=== PATIENT | male | born 1950 | race Caucasian/White ===

== ENCOUNTER 2016-11-09 18:16 | Emergency (ER) | payer BC ==
--- NOTE | ~2016-11-09 | ER ---
PATIENT'S NAME: DARI FOX [facility] AGE: 66 Y [address] ROOM: [place] [address] LOCATION: [facility] ADMIT DATE: 11/09/2016 ER/Outpatient Report DISCHARGE DATE: FAMILY PHYSICIAN: PHYSICIANARELNE ATTENDING PHYSICIAN: Fish Xie Time of Arrival: 1816 hours. Time of Evaluation: 1830 hours. IDENTIFICATION: A 66-year-old male. CHIEF COMPLAINT: Possible kidney stone. HISTORY OF PRESENT ILLNESS: The patient is a 66-year-old male, who night before last developed some low abdominal pain, a little bit to the right. He has a sharp pain every 10 to 15 minutes, that lasts just a few seconds. He has had increased frequency of urination, fever, chills, and dysuria. He has also had some hematuria. The patient has never been worked up or diagnosed with kidney stones, but feels he has had them in the past and passed them on his own. ALLERGIES: SULFA. CURRENT MEDICATIONS: 1. Zocor. 2. Flomax. 3. Finasteride. 4. Sertraline. 5. Aspirin. MEDICAL PROBLEMS: Coronary artery disease, status post previous [place], no stent; hyperlipidemia; possible history of kidney stones; BPH. PREVIOUS SURGERIES: Cardiac catheterization. SOCIAL HISTORY: The patient lives in [place]. Tobacco use, 3 cigarettes per day. Alcohol use, denies. Drug use, denies. FAMILY HISTORY: PATIENT'S NAME: DARI FOX [facility] AGE: 66 Y [address] ROOM: [place] [address] LOCATION: [facility] ADMIT DATE: 11/09/2016 ER/Outpatient Report DISCHARGE DATE: FAMILY PHYSICIAN: PHYSICIANARLENE ATTENDING PHYSICIAN: Fish Xie No pertinent family history identified. REVIEW OF SYSTEMS: All systems reviewed and negative other than what is noted in the HPI. PHYSICAL EXAMINATION: VITAL SIGNS: Height 6 feet 0 inches, weight 138.9 kg, blood pressure 145/69, pulse 83, respirations 18, temp 98, and saturations 94% on room air. GENERAL: A 66-year-old male, in no acute distress. HEENT: Head: Normocephalic, atraumatic. Ears: TMs not visualized. Eyes: Pupils equal and reactive to light and accommodation. Extraocular movements intact. Nose: Mucosa pink. No lesions. Mouth: No lesions. Pharynx benign. NECK: Supple. No lymphadenopathy. LUNGS: Clear to auscultation. HEART: Regular rate and rhythm. ABDOMEN: Soft, nondistended, minimally tender to deep palpation suprapubic. No rebound or guarding. No CVA tenderness. SKIN: [place], warm, and dry. No lesions or rashes noted. NEURO: No focal deficit. LABORATORY DATA AND X-RAYS: Sodium 140, potassium 3.8, chloride 105, CO2 of 25, BUN 15, creatinine 1, blood sugar 156. Liver enzymes normal. Hemoglobin 13.7, hematocrit 41.3, platelets 202, white count 14.7 with 85% neutrophils. UA: Specific gravity 1.015, pH 8, leukocytes positive, nitrites positive, packed field of white cells, packed field of red blood cells. Urine culture is pending. CT scan stone protocol, thick-walled bladder with surrounding inflammatory change consistent with cystitis, nonobstructive right intrarenal stone. IMPRESSION: Cystitis. PLAN: Levaquin 750 daily for 7 days. UTI handout. Push fluids and rest. Follow up with primary care this week. Follow up sooner if any problems or concerns. The patient understands and agrees, and all questions have been answered. FISH XIE MD CAR/modl PATIENT'S NAME: DARI FOX [facility] AGE: 66 Y [address] ROOM: [place], [place] [address] LOCATION: ED ADMIT DATE: 11/09/2016 ER/Outpatient Report DISCHARGE DATE: FAMILY PHYSICIAN: PHYSICIAN, NO ATTENDING PHYSICIAN: Fish Xie /[id number] d: 11/09/162310 t: 11/10/16523, OUTPATIENT REPORT
[2016-11-09 18:55] LABS: BILIRUBIN URINE NEGATIVE (NEGATIVE); BLOOD URINE 250 /UL (NEGATIVE); COLOR URINE RED (YELLOW); GLUCOSE URINE NEGATIVE (NEGATIVE); KETONE URINE 5 mg/dL (NEGATIVE); LEUKOCYTES URINE 500 /UL (NEGATIVE); NITRITE URINE POSITIVE (NEGATIVE); PROTEIN URINE 100 mg/dL (NEGATIVE); SPEC GRAVITY URINE 1.015 (1.003-1.035); TURBIDITY URINE 4+ (CLEAR); UROBILINOGEN URINE 1 mg/dL (NORMAL)
[2016-11-09 19:04] LABS: BASOPHIL % 0.1 %; EOSINOPHIL # 0.1 K/uL (0.0-0.5); EOSINOPHIL % 0.4 %; HEMATOCRIT 41.3 % (37.0-53.0); HEMOGLOBIN 13.7 g/dL (11.0-16.0); IMMATURE GRANULOCYTE # 0.1 K/uL (0.0-0.3); IMMATURE GRANULOCYTE % 0.4 %; LYMPHOCYTE # 0.9 K/uL (0.8-4.0); LYMPHOCYTE % 6.1 %; MCH 29.4 pg (27.0-34.0); MCHC 33.2 gm/dL (32.0-36.5); MCV 88.6 fl (83.0-98.0); MONOCYTE # 1.1 K/uL (0.0-1.0); MONOCYTE % 7.2 %; NEUTROPHIL # (ANC) 12.6 K/uL (1.4-9.0); NEUTROPHIL % 85.8 %; NRBC % 0 /100WBC (0-0.00); PLATELET COUNT 202 K/uL (150-450); RBC 4.66 M/uL (3.50-5.50); RDW-CV 12.3 % (11.9-14.6); WBC 14.7 K/uL (4.0-11.0)
[2016-11-09 19:04] LABS: BACTERIA URINE MANY (NEGATIVE); RBC URINE PACKED FIELD #/HPF (NEGATIVE); WBC URINE PACKED FIELD #/HPF (NEGATIVE)
[2016-11-09 19:27] LABS: ALBUMIN 3.5 gm/dL (3.5-5.0); ALK PHOS 72 IU/L (33-138); ALT 26 IU/L (12-78); ANION GAP 13.8 (10.0-19.0); AST 15 IU/L (10-40); BLOOD UREA NITROGEN 15 mg/dL (6-24); CALCIUM 8.6 mg/dL (8.5-10.5); CHLORIDE 105 mMol/L (96-110); CO2 25 mMol/L (22-32); ESTIMATED GFR (MDRD EQUATION) > 60; POTASSIUM 3.8 mMol/L (3.7-5.1); SODIUM 140 mMol/L (135-145); TOTAL BILIRUBIN 0.5 mg/dL (0.0-1.5); TOTAL PROTEIN 6.6 g/dL (6.0-8.4)
== END 2016-11-09 20:06 | disposition disaster alternative care site (69) ==
LOC: GMED 18:16
PROVIDERS: Family Medicine
DX: N30.90 Cystitis, unspecified without hematuria (principal); I25.10 Atherosclerotic heart disease of native coronary artery without angina pectoris; E78.5 Hyperlipidemia, unspecified; F17.210 Nicotine dependence, cigarettes, uncomplicated; N40.0 Benign prostatic hyperplasia without lower urinary tract symptoms; Z88.2 Allergy status to sulfonamides; Z79.82 Long term (current) use of aspirin; Z79.899 Other long term (current) drug therapy; Z98.890 Other specified postprocedural states